=== PATIENT | female | born 1985 | race Caucasian/White ===

== ENCOUNTER 2020-03-07 21:56 | Emergency (ER) | payer OTHER ==
[2020-03-07] MEDS ORDERED: LORazepam 1 MG TAB PO STA (22:23)
--- NOTE | 2020-03-07 22:28 | ED ---
General Adult HPI - General Chief complaint: Recheck/Abnormal Lab/Rx Stated complaint: Detox Time Seen by Provider: 03/07/20 22:10 Source: patient Mode of arrival: ambulatory Limitations: no limitations - History of Present Illness Initial comments: Patient is 34-year-old female with history of heroin abuse presenting to emergency Department with chief complaint of care withdrawal. Patient states she began to itch all about 2 days ago. Patient reports diarrhea along with anxiety and constant restless legs. Patient states she has been through which all several times before but has never been this severe. Patient states she has an appointment for Suboxone treatment on Thursday. Denies any chest pain shortness of breath. - Related Data Previous Rx's Medication Instructions Recorded LORazepam [Ativan] 1 mg PO HS 3 Days #3 tab 03/07/20 Allergies Allergy/AdvReac Type Severity Reaction Status Date / Time No Known Allergies Allergy Verified 03/07/20 22:03 Review of Systems ROS Statement: Those systems with pertinent positive or pertinent negative responses have been documented in the HPI. ROS Other: All systems not noted in ROS Statement are negative. Past Medical History Past Medical History: No Reported History History of Any Multi-Drug Resistant Organisms: None Reported Past Surgical History: Section Past Psychological History: No Psychological Hx Reported Smoking Status: Current every day smoker Past Alcohol Use History: None Reported Past Drug Use History: Heroin, Marijuana General Exam Limitations: no limitations General appearance: alert, in no apparent distress Head exam: Present: atraumatic, normocephalic, normal inspection Eye exam: Present: normal appearance, PERRL, EOMI Pupils: Present: mydriatic ENT exam: Present: normal exam, normal oropharynx, mucous membranes moist Neck exam: Present: normal inspection, full ROM Respiratory exam: Present: normal lung sounds bilaterally. Absent: respiratory distress, wheezes Cardiovascular Exam: Present: regular rate, normal rhythm, normal heart sounds GI/Abdominal exam: Present: soft. Absent: distended, tenderness Extremities exam: Present: normal inspection, full ROM. Absent: tenderness Back exam: Present: normal inspection, full ROM. Absent: tenderness Neurological exam: Present: alert, oriented X3 Psychiatric exam: Present: normal affect, anxious Skin exam: Present: warm, dry, intact, normal color Course Vital Signs 03/07/20 21:58 Temperature 98.0 F Pulse Rate 104 H Respiratory 20 Rate Blood Pressure 122/71 O2 Sat by Pulse 99 Oximetry Medical Decision Making - Medical Decision Making patient 34-year-old female with history of heroin abuse presenting to emergency Department for withdrawal. On exam patient is continuously moving her legs along with anxiety while she is talking. Patient is slightly emotional. Patient given Ativan in the emergency department and will be discharged with 3 Ativan tablets to last her until she sees a Suboxone provider on Thursday. Strict return parameters were thoroughly discussed the patient denies any agreeable. She was advised not to drive or operative machinery when taking medication. Case discussed physician. Disposition Clinical Impression: Heroin withdrawal, Acute anxiety, Diarrhea Disposition: HOME SELF-CARE Condition: Good Instructions (If sedation given, give patient instructions): Narcotic Withdrawal (ED), Opioid Withdrawal (ED) Additional Instructions: Take prescribed medication as directed. Follow-up with your Suboxone provider. Return to emergency department if symptoms worsen. Is patient prescribed a controlled substance at d/c from ED?: No Referrals: None,Stated [Primary Care Provider] - 1-2 days Time of Disposition: 22:27
[2020-03-07 22:44] VITALS: BP 112/82; PULSE 111; RESP 18; TEMP 98.2
== END 2020-03-07 22:45 | disposition home or self-care (01) ==
LOC: EC 21:56
DX: F11.23 Opioid dependence with withdrawal (principal); F41.9 Anxiety disorder, unspecified; R19.7 Diarrhea, unspecified; F17.200 Nicotine dependence, unspecified, uncomplicated
CPT/HCPCS: 99283